=== PATIENT | female | born 1990 | race Caucasian/White ===

== ENCOUNTER 2019-03-15 01:06 | Emergency (ER) | payer MEDICARE, MEDICAID ==
[~2019-03-15] VITALS: Ht 157.5 cm; Wt 75.0 kg
[2019-03-15 05:47] VITALS: BP 100/65
== END 2019-03-15 06:42 | disposition home or self-care (01) ==
LOC: ED 03:50
DX: F10.120 Alcohol abuse with intoxication, uncomplicated (principal); R45.851 Suicidal ideations
CPT/HCPCS: 36415; 80048; 80307; 82040; 84703; 85025; 99283

== ENCOUNTER 2019-08-11 04:59 | Emergency (ER) | payer MEDICAID, MEDICARE ==
[~2019-08-11] VITALS: Ht 149.9 cm; Wt 79.5 kg
[~2019-08-11 04:59] MED LIST: CLON0.5T PO; GABA300C10 PO; QUET25TA5 PO; SERT25TA3 PO
--- NOTE | 2019-08-11 05:43 | NUR ---
PT COMING AROUND. EASIER TO AROUSE. MONITOR IN PLACE. FRIEND AT BEDSIDE. WARM BLANKET PROVIDED.
--- NOTE | 2019-08-11 06:51 | NUR ---
RECEIVED REPORT FROM GARCÍA WALSH MD RE-EVALUATING PT
[2019-08-11 08:05] VITALS: BP 112/73
== END 2019-08-11 08:44 | disposition home or self-care (01) ==
LOC: MERGE 04:59 → ED 07:57
DX: F10.129 Alcohol abuse with intoxication, unspecified (principal); R41.82 Altered mental status, unspecified; F17.200 Nicotine dependence, unspecified, uncomplicated; Z90.89 Acquired absence of other organs
CPT/HCPCS: 99283

== ENCOUNTER 2020-02-01 22:00 | Emergency (ER) | payer MEDICARE, MEDICAID ==
[~2020-02-01] VITALS: Ht 152.4 cm; Wt 88.0 kg
[2020-02-01] MEDS ORDERED: DIAZEPAM 5 MG TABLET PO ONE (23:00)
[2020-02-01] MEDS ORDERED: KETOROLAC 30 MG/1 ML IM ONE (23:00)
[2020-02-01] MEDS ORDERED: KETOROLAC 30 MG/1 ML ONE (23:35)
[2020-02-01] MEDS ORDERED: DIAZEPAM 5 MG TABLET ONE (23:35)
[2020-02-01 23:53] LABS: HCG UR SG 1.009 (1.003-1.030); MICROSCOPIC NOT IND
[2020-02-02 00:58] VITALS: BP 124/74
== END 2020-02-02 01:13 | disposition home or self-care (01) ==
LOC: ED 22:30
DX: S39.012A Strain of muscle, fascia and tendon of lower back, initial encounter (principal); M41.86 Other forms of scoliosis, lumbar region; Z11.3 Encounter for screening for infections with a predominantly sexual mode of transmission; X58.XXXA Exposure to other specified factors, initial encounter; Y93.89 Activity, other specified; Y92.89 Other specified places as the place of occurrence of the external cause; Y99.8 Other external cause status
CPT/HCPCS: 72110; 81003; 81025; 96372; 99284; J1885

== ENCOUNTER 2021-01-18 17:49 | Emergency (ER) | payer MEDICARE, MEDICAID ==
[~2021-01-18] VITALS: Ht 152.4 cm; Wt 83.0 kg
[~2021-01-18 17:49] MED LIST changes: +SERT-331 PO; -SERT25TA3 PO
[2021-01-18 19:20] LABS: BASOPHILS % (AUTO) 1 % (0-1); EOSINOPHILS % (AUTO) 2 % (1-7); LYMPHOCYTES % (AUTO) 25 % (22-44); MEAN CORPUSCULAR HGB CONC 33.5 g/dL (32.4-35.8); MONOCYTES % (AUTO) 6 % (2-9); NEUTROPHILS % (AUTO) 67 % (42-75); PLATELET COUNT 267 x10^3/uL (130-400); RED BLOOD COUNT 4.82 x10^6/uL (3.82-5.3); RED CELL DISTRIBUTION WIDTH 14.5 % (9.6-15.2)
[2021-01-18 19:26] LABS: ALANINE AMINOTRANSFERASE 23 U/L (12-78); ALBUMIN 3.8 g/dL (3.4-5.0); ANION GAP 10 mmol/L (5-15); CALCIUM 9.7 mg/dL (8.5-10.1); CHLORIDE 110 mmol/L (98-107)
[2021-01-18 19:31] LABS: ALKALINE PHOSPHATASE 97 U/L (45-117); BILIRUBIN,TOTAL 0.4 mg/dL (0.2-1.0); CREATININE 0.82 mg/dL (0.55-1.02)
[2021-01-18 20:47] LABS: MICROSCOPIC AUTO
--- NOTE | 2021-01-18 20:56 | NUR ---
shift foreman: Pt ambulatory to room from lobby at this time.
--- NOTE | 2021-01-18 21:38 | NUR ---
ASSUMED CARE OF PATIENT. PT REPORTS LEFT LOWER ABD PAIN, PT ALSO REPORTS SHE TOOK A TEST TODAY AND IT WAS POSTIVE. DR HOLBROOK IN ROOM. VS STABLE. NO ACUTE DISTRESS NOTED. WILL CONTINUE TO MONITOR.
[2021-01-18 22:43] VITALS: BP 126/81
== END 2021-01-18 22:44 | disposition home or self-care (01) ==
LOC: ED 20:54
DX: O26.891 Other specified pregnancy related conditions, first trimester (principal); R10.32 Left lower quadrant pain; O99.331 Smoking (tobacco) complicating pregnancy, first trimester; F17.200 Nicotine dependence, unspecified, uncomplicated; Z3A.01 Less than 8 weeks gestation of pregnancy
CPT/HCPCS: 36415; 76801; 80053; 81001; 84702; 85025; 86901; 87086; 99284

== ENCOUNTER 2021-02-18 02:32 | Emergency (ER) | payer MEDICARE ==
[~2021-02-18] VITALS: Ht 152.4 cm; Wt 83.5 kg
[2021-02-18 03:15] LABS: BASOPHILS % (AUTO) 1 % (0-1); EOSINOPHILS % (AUTO) 2 % (1-7); LYMPHOCYTES % (AUTO) 28 % (22-44); MEAN CORPUSCULAR HEMOGLOBIN 28.8 pg (27.0-34.8); MEAN CORPUSCULAR HGB CONC 34.3 g/dL (32.4-35.8); MEAN PLATELET VOLUME 8.6 fL (7.4-10.4); MONOCYTES % (AUTO) 8 % (2-9); NEUTROPHILS % (AUTO) 61 % (42-75); PLATELET COUNT 256 x10^3/uL (130-400); RED BLOOD COUNT 4.52 x10^6/uL (3.82-5.3); RED CELL DISTRIBUTION WIDTH 14.1 % (9.6-15.2)
[2021-02-18 03:28] LABS: ALANINE AMINOTRANSFERASE 21 U/L (12-78); ALBUMIN 3.8 g/dL (3.4-5.0); ANION GAP 6 mmol/L (5-15); CALCIUM 9.4 mg/dL (8.5-10.1); CHLORIDE 110 mmol/L (98-107); CREATININE 0.85 mg/dL (0.55-1.02)
[2021-02-18 03:45] LABS: ALKALINE PHOSPHATASE 86 U/L (45-117); BILIRUBIN,TOTAL 0.3 mg/dL (0.2-1.0); TOTAL PROTEIN 7.5 g/dL (6.4-8.2)
[2021-02-18 03:54] VITALS: BP 111/72
[2021-02-18 04:19] LABS: MICROSCOPIC INDICATED
--- NOTE | 2021-02-18 05:24 | NUR ---
Patient given discharge instructions and they have confirmed that they understand the instructions. Patient ambulatory with steady gait. NAD, all questions answered appropriately, denies additional needs at this time. No personal belongings left in room after discharge.
== END 2021-02-18 05:25 | disposition home or self-care (01) ==
LOC: ED 03:00
DX: O03.9 Complete or unspecified spontaneous abortion without complication (principal); R00.0 Tachycardia, unspecified
CPT/HCPCS: 36415; 76801; 80053; 81001; 84702; 85025; 86901; 87086; 99284

== ENCOUNTER 2021-02-20 21:17 | Emergency (ER) | payer MEDICARE, MEDICAID ==
[~2021-02-20] VITALS: Ht 152.4 cm; Wt 85.8 kg
[2021-02-20 21:20] VITALS: BP 125/84
--- NOTE | 2021-02-20 21:46 | NUR ---
Pt is very pleasant, alert and oriented x4, in no acute distress. Pt accompanied by significant other, endorses going through a current miscarriage at 7wks gestation. States she was seen here the day before yesterday. Endorses heavy vaginal bleeding with clots, states she is soaking pads q3 hours, endorses nausea, dizziness, lower back pain, abdominal cramping, and lower abdominal pressure. States pain has been too severe, has taken OTC Tylenol at home w/ no relief. No living children. Hx of elective many years ago, denies any other remarkable [employer]/OB hx. PMH remarkable for hypercholesteremia, Depression, and Anxiety for which she takes medications for and has follow up in place.
[2021-02-20] MEDS ORDERED: KETOROLAC 60 MG/2 ML IM ONE (22:30)
[2021-02-20] MEDS ORDERED: CEFTRIAXONE 1,000 MG IM ONE (22:30)
[2021-02-20] MEDS ORDERED: CEFTRIAXONE 250 MG ONE (22:33)
[2021-02-20] MEDS ORDERED: KETOROLAC 60 MG/2 ML ONE (22:33)
[2021-02-20 22:56] LABS: BASOPHILS % (AUTO) 1 % (0-1); EOSINOPHILS % (AUTO) 4 % (1-7); LYMPHOCYTES % (AUTO) 28 % (22-44); MEAN CORPUSCULAR HEMOGLOBIN 28.2 pg (27.0-34.8); MEAN CORPUSCULAR HGB CONC 33.3 g/dL (32.4-35.8); MEAN PLATELET VOLUME 8.5 fL (7.4-10.4); MONOCYTES % (AUTO) 8 % (2-9); NEUTROPHILS % (AUTO) 59 % (42-75); PLATELET COUNT 262 x10^3/uL (130-400); RED BLOOD COUNT 4.36 x10^6/uL (3.82-5.3)
[2021-02-20 23:05] LABS: ANION GAP 5 mmol/L (5-15); CALCIUM 8.8 mg/dL (8.5-10.1); CHLORIDE 108 mmol/L (98-107); CREATININE 0.73 mg/dL (0.55-1.02)
--- NOTE | 2021-02-20 23:10 | NUR ---
Pending labs, pain meds and ABX given. Tolerated well. Denies needs. pts family member at bedside.
--- NOTE | 2021-02-21 00:11 | NUR ---
Patient/Caregiver given discharge instructions and they have confirmed that they understand the instructions. Patient ambulatory with steady gait. NAD, all questions answered appropriately, denies additional needs at this time. No personal belongings left in room after discharge.
== END 2021-02-21 00:12 | disposition home or self-care (01) ==
LOC: ED 21:47
DX: O03.9 Complete or unspecified spontaneous abortion without complication (principal); O23.11 Infections of bladder in pregnancy, first trimester; R31.9 Hematuria, unspecified; R10.2 Pelvic and perineal pain; Z3A.01 Less than 8 weeks gestation of pregnancy
CPT/HCPCS: 36415; 80048; 85025; 93005; 96372; 99284; J0696; J1885